=== PATIENT | female | born 1945 | race Caucasian/White ===

== ENCOUNTER 2021-03-05 12:30 | Inpatient (IN) | payer OTHER ==
[~2021-03-05] VITALS: Ht 167.6 cm; Wt 74.8 kg
[2021-03-05] MEDS ORDERED: COZAAR25 MG PO (16:15)
[2021-03-05] MEDS ORDERED: ZOCOR PO (16:16)
[2021-03-05] MEDS ORDERED: ZOCOR40 MG PO (16:16)
[2021-03-10] MEDS ORDERED: GABAPENTIN800 M1 (08:02)
[2021-03-10] MEDS ORDERED: SIMVASTATIN40 MG (08:03)
[2021-03-10] MEDS ORDERED: HYDROCHLOROTH12.5 MG (08:03)
[2021-03-10] MEDS ORDERED: LEVO-T50 MCG (08:03)
[2021-03-10] MEDS ORDERED: TIZANIDINE HCL4 MG (08:03)
[2021-03-10] MEDS ORDERED: AMOX-CLAV 875-1 EAC1 PO (11:01)
[2021-03-10] MEDS ORDERED: MEDROLPACK PO (11:01)
[2021-03-10] MEDS ORDERED: PERCOCET 5-3251 EACH PO (11:01)
[2021-03-10] MEDS ORDERED: DIAZEPAM5 MG PO (11:01)
[2021-03-10] MEDS ORDERED: COLACE100 MG PO (11:01)
[2021-03-10] MEDS ORDERED: NEURONTIN800 MG PO (11:01)
== END 2021-03-11 13:11 | disposition home or self-care (01) | DRG 455 ==
LOC: O/R 03-10 05:00 → SURH 03-10 07:00 → PED 03-10 16:10 → SURG 03-10 16:13
PROVIDERS: ADMIT Orthopaedic Surgery Orthopaedic Surgery of the Spine; ATTEND Orthopaedic Surgery Orthopaedic Surgery of the Spine
PROC: 0SG10J1 Fusion of 2 or more Lumbar Vertebral Joints with Synthetic Substitute, Posterior Approach, Posterior Column, Open Approach (ICD-10-PCS; 2021-03-10)
PROC: 07DR3ZZ Extraction of Iliac Bone Marrow, Percutaneous Approach (ICD-10-PCS; 2021-03-10)
PROC: XRGC0F3 Fusion of 2 or more Lumbar Vertebral Joints using Radiolucent Porous Interbody Fusion Device, Open Approach, New Technology Group 3 (ICD-10-PCS; principal; 2021-03-10 07:00)
DX: M47.816 Spondylosis without myelopathy or radiculopathy, lumbar region (principal); M48.062 Spinal stenosis, lumbar region with neurogenic claudication; I10 Essential (primary) hypertension

== ENCOUNTER 2021-03-19 12:51 | Inpatient (IN) | payer OTHER ==
[~2021-03-19] VITALS: Ht 167.6 cm; Wt 81.6 kg
[~2021-03-19 12:51] MED LIST: AMOX-CLAV 875-1 EAC1 PO; COLACE100 MG PO; COZAAR25 MG PO; DIAZEPAM5 MG PO; GABAPENTIN800 M1; HYDROCHLOROTH12.5 MG; LEVO-T50 MCG; MEDROLPACK PO; NEURONTIN800 MG PO; PERCOCET 5-3251 EACH PO; SIMVASTATIN40 MG; TIZANIDINE HCL4 MG; ZOCOR PO; ZOCOR40 MG PO
--- NOTE | 2021-03-19 13:06 | NUR ---
SE RECIBE PTE LA CUAL LLEGA EN AMBULANCIA, ORIENTADA EN PERSONA. PARAMEDICOS REFIEREN PTE FUE OPERADA DE LA ESPALDA POR DR GIBSON Y DESDE ANDREE SE ENCUENTRA DESORIENTADA. AL MOMENTO B/P INAUDIBLES, PTE DEBIL, SUDOROSA. SE REALIZA EKG Y SE PRESENTA A LA DRA SANTIAGO. SE UBICA EN AREA DE CHEST PAIN CONECTADA A MONITOR CARDIACO Y OXIMETRIA DE PULSO.
--- NOTE | 2021-03-19 13:29 | NUR ---
PACIENTE HIPOACTIVA, CONECTADA A MONITOR CARDIACO, SE COLECTAN MUESTRAS DE LABORATORIO, SE CANALIZA VENA Y SE COMIENZA A ADMINISTRAR 500 ML DE 0.9% NSS FULL DRIP. PENDIENTE CT SCAN DE PECHO.
--- NOTE | 2021-03-19 13:55 | NUR ---
SE NOTIFICA A YULIA SANTIAGO BP 71/36 MMHG, ORDENA ADMINISTRAR OTROS 500 ML DE 0.9% NSS FULL DRIP.
--- NOTE | 2021-03-19 16:11 | NUR ---
SE RECIBE PTE FEMENINA ALERTA Y ORIENTADA X3,CONECTADA A MONITOR CARDIACO BOOKER Y OXIMETRIA CONTINUA,CON 2 H/L APETNETES LIBRES DE EDEMA Y ENROJECIMIENTO,SE RENETTA MUESTRAS Y SE ENVIAN A LABORATORIO,SE MANTIENE PTE CON BAZAN Y SE NOTIFICA A YULIA.SANTIAGO PTE TIENE DE OUTPUT SOLO 50ML,SE COLOVCA C/NA 3LTRS,SE REALIZA B/P MANUAL Y SE NOTIFICA 80/40,PTE SE OBSERVA SOMNOLIENTA,SE MANTIENE PTE EN OBSERVACION POR CAMBIOS.
--- NOTE | 2021-03-19 16:42 | NUR ---
SE NOTIFICA A PTE CON B/P 80/40,ARPITA ORDENA SE COLOQUE DRIP DE LVOPHED 8MG/250@5ML/HR,LO CUAL SE REALIZA,SE MANTIENE A PTE EN VIGILANCIA BOOKER POR CAMBIOS.
[2021-03-24] MEDS ORDERED: LOSARTAN POTASS25 MG (10:37)
[2021-03-24] MEDS ORDERED: SIMVASTATIN40 MG (10:37)
[2021-03-24] MEDS ORDERED: TIZANIDINE HCL4 MG (10:37)
[2021-03-24] MEDS ORDERED: HYDROCHLOROTH12.5 MG (10:37)
[2021-03-24] MEDS ORDERED: LEVO-T50 MCG (10:37)
[2021-03-29] MEDS ORDERED: LOSARTAN POTASS50 MG PO (07:43)
[2021-03-29] MEDS ORDERED: ZOFRAN8 MG PO (07:44)
[2021-03-29] MEDS ORDERED: LEVOTHYROXINE50 MCG PO (07:44)
[2021-03-29] MEDS ORDERED: CARAFATE1 GM PO (07:44)
== END 2021-03-29 13:39 | disposition home or self-care (01) | DRG 862 ==
LOC: ER 12:51 → ICU-2 19:41 → ICU 03-22 09:46 → SURG 03-23 10:10
PROVIDERS: ADMIT Internal Medicine; ATTEND Internal Medicine
PROC: B24BZZZ Ultrasonography of Heart with Aorta (ICD-10-PCS; principal; 2021-03-19)
PROC: 02HV33Z Insertion of Infusion Device into Superior Vena Cava, Percutaneous Approach (ICD-10-PCS; 2021-03-20)
PROC: 4A12X4Z Monitoring of Cardiac Electrical Activity, External Approach (ICD-10-PCS; 2021-03-23)
DX: T81.44XA Sepsis following a procedure, initial encounter (principal); R65.21 Severe sepsis with septic shock; N17.8 Other acute kidney failure; E27.49 Other adrenocortical insufficiency; I10 Essential (primary) hypertension; E87.6 Hypokalemia
CPT/HCPCS: 72149

== ENCOUNTER 2021-08-20 09:32 | Outpatient (CLI) | payer OTHER ==
[~2021-08-20 09:32] MED LIST changes: +CARAFATE1 GM PO; +LEVOTHYROXINE50 MCG PO; +LOSARTAN POTASS25 MG; +LOSARTAN POTASS50 MG PO; +ZOFRAN8 MG PO
== END 2021-08-20 09:49 | disposition home or self-care (01) ==
LOC: TOM 09:32
PROVIDERS: ATTEND Internal Medicine Gastroenterology
DX: K57.90 Diverticulosis of intestine, part unspecified, without perforation or abscess without bleeding (principal); R10.84 Generalized abdominal pain; E03.8 Other specified hypothyroidism; E78.49 Other hyperlipidemia; K52.89 Other specified noninfective gastroenteritis and colitis; K57.30 Diverticulosis of large intestine without perforation or abscess without bleeding